=== PATIENT | female | born 1975 | race Hispanic/Latino ===

== ENCOUNTER → 2023-12-27 11:58 | Outpatient (REF) | payer OTHER, SELFPAY ==
[2023-12-27 12:56] LABS: Hematocrit 39.3 % (37.0-47.0); Hemoglobin 12.7 g/dL (12.0-16.0); Mean Corp Hgb Conc. 32.3 g/dL (33.0-37.0); Mean Corpuscular Volume 71.3 fL (81.0-99.0); Platelet Count 196 10^3/uL (130-400); Red Blood Cell Count 5.51 10^6/uL (4.20-5.40); Red Cell Dist. Width 16.4 % (11.5-14.5); White Blood Cell Count 5.5 10^3/uL (4.8-10.8)
[2023-12-27 13:50] LABS: ALT (SGPT) 33 U/L (0-35); AST (SGOT) 32 U/L (14-36); Albumin 4.4 g/dl (3.5-5.0); Alkaline Phosphatase 150 U/L (38-126); Blood Urea Nitrogen 17 mg/dl (7-17); Calcium 9.4 mg/dl (8.4-10.2); Carbon Dioxide 26 mmol/L (22-30); Chloride 101 mmol/L (98-107); Glucose 94 mg/dl (70-99); HDL Cholesterol 69 mg/dl; LDL Cholesterol, Calculated 80 mg/dl; Potassium 4.2 mmol/L (3.5-5.1); Sodium 136 mmol/L (135-145); Total Bilirubin 0.2 mg/dl (0.2-1.3); Total Cholesterol 169 mg/dl (50-199); Total Protein 7.8 g/dl (6.3-8.2); Triglyceride 101 mg/dl (10-149); Very Low Density Lipoprotein 20 mg/dl (0-30); eGFR > 60.00
[2023-12-27 14:04] LABS: TSH 2.13 uIU/ml (0.47-4.68)
== END ==
LOC: CLINIC 11:58
PROVIDERS: ATTENDING PHYSICIAN Physician Assistant Medical
DX: Z00.00 Encounter for general adult medical examination without abnormal findings (principal)
CPT/HCPCS: 36415; 73564; 80053; 80061; 84443; 85027

== ENCOUNTER → 2024-01-27 09:49 | Outpatient (REF) | payer OTHER, SELFPAY ==
[2024-01-27 13:59] LABS: Alkaline Phosphatase 109 U/L (38-126)
== END ==
LOC: CLINIC 09:49
PROVIDERS: ATTENDING PHYSICIAN Physician Assistant Medical
DX: Z12.31 Encounter for screening mammogram for malignant neoplasm of breast (principal); Z00.00 Encounter for general adult medical examination without abnormal findings; R74.8 Abnormal levels of other serum enzymes
CPT/HCPCS: 36415; 77063; 77067; 84075

== ENCOUNTER → 2024-02-02 10:10 | Outpatient (REF) | payer OTHER, SELFPAY | LOC: WDC 10:10 | PROVIDERS: ATTENDING PHYSICIAN Physician Assistant Medical | DX: R92.8 Other abnormal and inconclusive findings on diagnostic imaging of breast (principal) | CPT/HCPCS: 76642 ==

== ENCOUNTER → 2024-02-18 12:42 | Outpatient (REF) | payer OTHER, SELFPAY | LOC: CLINIC 12:42 | PROVIDERS: ATTENDING PHYSICIAN Family Medicine | DX: Z12.4 Encounter for screening for malignant neoplasm of cervix (principal) | CPT/HCPCS: 87624; G0123 ==

== ENCOUNTER → 2025-02-22 15:09 | Outpatient (REF) | payer SELFPAY | LOC: WDC 15:09 | PROVIDERS: ATTENDING PHYSICIAN Nurse Practitioner Adult Health | DX: Z12.31 Encounter for screening mammogram for malignant neoplasm of breast (principal) | CPT/HCPCS: 77063; 77067 ==

== ENCOUNTER → 2025-02-27 06:40 | Outpatient (REF) | payer OTHER, SELFPAY ==
[2025-02-27 07:58] LABS: Hematocrit 38.5 % (37.0-47.0); Hemoglobin 12.3 g/dL (12.0-16.0); Mean Corp Hgb Conc. 31.9 g/dL (33.0-37.0); Mean Corpuscular Hgb 23.4 pg (27.0-31.0); Mean Corpuscular Volume 73.3 fL (81.0-99.0); Mean Platelet Volume 12.5 fL (7.4-10.4); Platelet Count 237 10^3/uL (130-400); Red Blood Cell Count 5.25 10^6/uL (4.20-5.40); Red Cell Dist. Width 15.9 % (11.5-14.5); White Blood Cell Count 7.2 10^3/uL (4.8-10.8)
[2025-02-27 08:27] LABS: ALT (SGPT) 16 U/L (0-35); AST (SGOT) 21 U/L (14-36); Albumin 4.2 g/dl (3.5-5.0); Alkaline Phosphatase 104 U/L (38-126); Blood Urea Nitrogen 14 mg/dl (7-17); Carbon Dioxide 27 mmol/L (22-30); Chloride 107 mmol/L (98-107); Glucose 86 mg/dl (70-99); HDL Cholesterol 66 mg/dl; LDL Cholesterol, Calculated 106 mg/dl; Sodium 140 mmol/L (135-145); Total Bilirubin 0.2 mg/dl (0.2-1.3); Total Cholesterol 191 mg/dl (50-199); Total Protein 7.5 g/dl (6.3-8.2); Triglyceride 95 mg/dl (10-149); Very Low Density Lipoprotein 19 mg/dl (0-30); eGFR > 60.00
[2025-02-27 08:44] LABS: TSH Reflex To Free T4 3.99 uIU/ml (0.47-4.68)
== END ==
LOC: REG 06:40
PROVIDERS: ATTENDING PHYSICIAN Nurse Practitioner Adult Health
DX: Z00.00 Encounter for general adult medical examination without abnormal findings (principal)
CPT/HCPCS: 36415; 80053; 80061; 84443; 85027

== ENCOUNTER → 2025-09-24 17:15 | Outpatient (REF) | payer OTHER, SELFPAY ==
[2025-09-24 17:51] LABS: Hematocrit 37.0 % (37.0-47.0); Hemoglobin 11.7 g/dL (12.0-16.0); Mean Corp Hgb Conc. 31.6 g/dL (33.0-37.0); Mean Corpuscular Volume 72.7 fL (81.0-99.0); Platelet Count 235 10^3/uL (130-400); Red Cell Dist. Width 15.9 % (11.5-14.5)
[2025-09-24 18:03] LABS: ALT (SGPT) 16 U/L (0-35); AST (SGOT) 22 U/L (14-36); Albumin 4.2 g/dl (3.5-5.0); Alkaline Phosphatase 112 U/L (38-126); Blood Urea Nitrogen 13 mg/dl (7-17); Calcium 9.4 mg/dl (8.4-10.2); Carbon Dioxide 29 mmol/L (22-30); Chloride 102 mmol/L (98-107); Glucose 94 mg/dl (70-99); Potassium 4.0 mmol/L (3.5-5.1); Sodium 136 mmol/L (135-145); Total Protein 7.7 g/dl (6.3-8.2); eGFR > 60.00
== END ==
LOC: CLINIC 17:15
PROVIDERS: ATTENDING PHYSICIAN Nurse Practitioner Adult Health
DX: R10.13 Epigastric pain (principal); K21.9 Gastro-esophageal reflux disease without esophagitis
CPT/HCPCS: 36415; 80053; 83013; 85027